=== PATIENT | male | born 1960 | race Two or more races ===

== ENCOUNTER 2020-09-16 15:48 | Emergency (ER) | payer OTHER ==
[~2020-09-16] VITALS: Ht 170.2 cm; Wt 96.2 kg
[2020-09-16 15:50] VITALS: BP 163/97
--- NOTE | 2020-09-16 16:00 | NUR ---
PATIENT WALKED BACK FROM TRIAGE WITH CHIEF C/O RIGHT GROIN PAIN X3 DAYS. PER PATIENT IT HURTS WORSE WHEN HE IS STANDING FOR A LONG PERIOD OF TIME. PATIENT HAD HERNIA SURGERY 5 WEEKS AGO. DENIES PAIN WITH URINATION, DENIES ABD PAIN. [facility]OMAS, ACCOMPANIED BY . CHRISTINA AT BEDSIDE FOR EVALUATION.
--- NOTE | 2020-09-16 16:48 | NUR ---
URINE COLLECTED AND SENT TO LAB.
[2020-09-16 16:56] LABS: MICROSCOPIC NOT IND
--- NOTE | 2020-09-16 17:32 | NUR ---
PATIENT SITTING IN [facility], AT BEDSIDE, CALL LIGHT WITHIN REACH. PATIENT UP FOR RECHECK.
--- NOTE | 2020-09-16 17:35 | NUR ---
ERMD AT BEDSIDE TO DISCUSS POC.
== END 2020-09-16 18:01 | disposition home or self-care (01) ==
LOC: ED 16:57
DX: S76.011A Strain of muscle, fascia and tendon of right hip, initial encounter (principal); R10.31 Right lower quadrant pain; X58.XXXA Exposure to other specified factors, initial encounter; Y93.89 Activity, other specified; Y92.89 Other specified places as the place of occurrence of the external cause; Y99.8 Other external cause status
CPT/HCPCS: 76857; 81003; 99284